=== PATIENT | female | born 1995 | race African-American/Black ===

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

== ENCOUNTER 2017-12-14 07:50 | Emergency (ER) | payer MEDICAID ==
[~2017-12-14] VITALS: Ht 167.6 cm; Wt 52.2 kg
[2017-12-14] MEDS ORDERED: NKM (08:04)
[2017-12-14] MEDS ORDERED: Ketorolac 30mg Inj IV ONE (08:15)
[2017-12-14 08:21] VITALS: BP 117/75
--- NOTE | 2017-12-14 08:26 | Emergency Room Report ---
History of Present Illness General Chief Complaint: Nausea, Vomiting, and Diarrhea Source: Patient, Family Member Present Illness HPI Patient presents with abdominal pain and vomiting. She is constipated. This is a recurrent problem with her. The last time she moved her bowels well was 4 days ago. She did pass some diarrhea earlier this morning. She also passed out with vomiting today. She's had syncope in the past in similar circumstances. She tried some Vivien-Cowiche this morning but was unable to keep it down. She complains about abdominal pain which is bilateral and below her bellybutton. It's constant and 7/10 and aching pressure. She denies any dysuria. Her last period was normal for her. She doesn't believe she is . There is no dysuria. She denies any fevers or chills. In the past she's taken magnesium citrate and this is helped out. It's been a long time she she's had a take magnesium citrate. She feels dehydrated at this time. She denies any recent travel or ill contacts. No headache, URI sy, chest pain, extremity pain. Student stress. She was evaluated here in 2014. She had a similar presentation at that time and EKG, cardiac monitoring and CT scan were performed. It was felt that syncope was vasovagal at that time. The CT scan had these results: Findings: Paucity of intra-abdominal fat limits visibility the bowel structures. A normal appendix is demonstrated. No evidence of diverticulosis or diverticulitis. There is some pelvic free fluid. The uterus is retroverted and retroflexed. No bowel distention. No free or loculated intraperitoneal air. Liver, gallbladder , spleen, adrenals, kidneys, pancreas are unremarkable. No pelvic mass or adenopathy. The lung bases are clear. The bones are unremarkable. Impression: Essentially unremarkable exam. 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[employer] Last Menstrual Period: 11/21/17 Reviewed Nursing Documentation: PMH: Agreed; PSxH: Agreed Nursing Documentation-PMH Past Medical History: No History, Except For Hx Gastrointestinal Problems: Yes Review of Systems All Other Systems: negative except mentioned in HPI Physical Exam Vital Signs Date Time Temp Pulse Resp B/P (MAP) Pulse Ox O2 Delivery O2 Flow Rate FiO2 12/14/17 07:55 97.8 72 18 117/75 99 Room Air 97.9 Sp02 EP Interpretation: reviewed, normal General Appearance: well appearing, no apparent distress, GCS 15, thin Head: normocephalic, atraumatic Eyes: bilateral eye normal inspection, bilateral eye PERRL, bilateral eye EOMI ENT: moist mucus membranes Neck: supple Respiratory: lungs clear, normal breath sounds Cardiovascular #1: regular rate, rhythm Cardiovascular #2: 2+ radial (R) Gastrointestinal: normal inspection, normal bowel sounds, no mass, non- distended, no guarding, no rebound, tenderness - Below bellybutton bilater, other - vomit with bile, no blood Genitourinary: no CVA tenderness Musculoskeletal: back normal, gait/station normal, normal range of motion Neurologic: alert, oriented x3, motor strength/tone normal, sensory intact, speech normal Psychiatric: mood/affect normal Skin: normal inspection, warm/dry Medical Decision Making Diagnostic Impression: Primary Impression: Abdominal pain Qualified Codes: R10.84 - Generalized abdominal pain Additional Impressions: Constipation Qualified Codes: K59.01 - Slow transit constipation Syncope Qualified Codes: R55 - Syncope and collapse ER Course Patient presents with abdominal pain, constipation, vomiting and syncopal episode after vomiting this morning. She's had these episodes in the past. At this point her vital signs are stable. She does have abdominal pain. Differential includes constipation, dehydration, viral syndrome, food poisoning amongst others. Evaluation will be with labs and also abdominal film. The patient will be treated with IV hydration, Zofran and when she is able to tolerate oral medication she magnesium citrate or lactulose. She may need to have an enema. The syncopal episode sounds vasovagal and this has happened in the past and at this time further evaluation is not necessary aside from laboratory. Labs with normal white count. Urinalysis negative. KUB nonspecific bowel gas pattern. Patient was able to tolerate lactulose and then had good results. There was slight amount of blood in the stool. Pain improved after moving her bowels. Patient is stable for outpatient observation and treatment. Laboratory Tests Test 12/14/17 08:14 8/19/18 09:00 White Blood Count 9.7 K/UL (4.8-10.8) Red Blood Count 4.03 M/UL (4.20-5.40) L Hemoglobin 12.5 G/DL (12.0-16.0) Hematocrit 37.5 % (37.0-47.0) Mean Corpuscular Volume 93 FL (80-99) Mean Corpuscular Hemoglobin 31.0 PG (27.0-31.0) Mean Corpuscular Hemoglobin Concent 33.3 G/DL (32.0-36.0) Red Cell Distribution Width 12.4 % (11.6-14.8) Platelet Count 149 K/UL (150-450) L Mean Platelet Volume 9.1 FL (6.5-10.1) Neutrophils (%) (Auto) 72.2 % (45.0-75.0) Lymphocytes (%) (Auto) 17.2 % (20.0-45.0) L Monocytes (%) (Auto) 8.0 % (1.0-10.0) Eosinophils (%) (Auto) 1.3 % (0.0-3.0) Basophils (%) (Auto) 1.3 % (0.0-2.0) Sodium Level 141 MMOL/L (136-145) Potassium Level 3.8 MMOL/L (3.5-5.1) Chloride Level 107 MMOL/L (98-107) Carbon Dioxide Level 23 MMOL/L (21-32) Anion Gap 11 mmol/L (5-15) Blood Urea Nitrogen 15 mg/dL (7-18) Creatinine 0.9 MG/DL (0.55-1.30) Estimate Glomerular Filtration Rate > 60 mL/min (>60) Glucose Level 124 MG/DL (74-106) H Calcium Level 8.7 MG/DL (8.5-10.1) Total Bilirubin 0.2 MG/DL (0.2-1.0) Aspartate Amino Transferase (AST) 24 U/L (15-37) Alanine Aminotransferase (ALT) 12 U/L (12-78) Alkaline Phosphatase 92 U/L (46-116) Total Protein 7.3 G/DL (6.4-8.2) Albumin 3.9 G/DL (3.4-5.0) Globulin 3.4 g/dL Albumin/Globulin Ratio 1.1 (1.0-2.7) Lipase 166 U/L (73-393) Urine Color Yellow Urine Appearance Clear Urine pH 5 (4.5-8.0) Urine Specific [place] 1.025 (1.005-1.035) Urine Protein 2+ (NEGATIVE) H Urine Glucose (UA) Negative (NEGATIVE) Urine Ketones 1+ (NEGATIVE) H Urine Occult Blood 1+ (NEGATIVE) H Urine Nitrite Negative (NEGATIVE) Urine Bilirubin Negative (NEGATIVE) Urine Urobilinogen 4 MG/DL (0.0-1.0) H Urine Leukocyte Esterase 1+ (NEGATIVE) H Urine RBC 2-4 /HPF (0 - 2) H Urine WBC 2-4 /HPF (0 - 2) Urine Squamous Epithelial Cells Few /LPF (NONE/OCC) Urine Bacteria Few /HPF (NONE) Urine Mucus Moderate /LPF (NONE/OCC) H Urine HCG, Qualitative Negative (NEGATIVE) Other X-Ray Diagnostic Results Other X-Ray Diagnostic Results : X-Ray ordered: abd # of Views/Limited Vs Complete: 1 View Indication: Pain Interpretation: nonspecific bowel gas, no sbo, other - no masses Impression: Other Electronically Signed by: Electronically signed by Seth Mayorga MD Last Vital Signs Date Time Temp Pulse Resp B/P (MAP) Pulse Ox O2 Delivery O2 Flow Rate FiO2 12/14/17 12:38 98.4 81 20 112/69 100 Room Air 98.4 Status: improved Disposition: HOME, SELF-CARE Condition: Improved Scripts Ondansetron Odt* (ZOFRAN ODT*) 4 Mg Tab.rapdis 4 MG BC EVERY 8 HOURS, #6 TAB 0 Refills Prov: Seth Mayorga M.D. 12/14/17 Lactulose (LACTULOSE*) 20 Gm/30 Ml Solution 30 ML ORAL BID, #240 ML 1 Refill Prov: Seth Mayorga M.D. 12/14/17 Seth Mayorga M.D. Dec 14, 2017 08:26
[2017-12-14 08:30] LABS: BASOPHILS % (AUTO) 1.3 % (0.0-2.0); EOSINOPHILS % (AUTO) 1.3 % (0.0-3.0); HEMATOCRIT 37.5 % (37.0-47.0); HEMOGLOBIN 12.5 G/DL (12.0-16.0); LYMPHOCYTES % (AUTO) 17.2 % (20.0-45.0); MEAN CORPUSCULAR VOLUME 93 FL (80-99); NEUTROPHILS % (AUTO) 72.2 % (45.0-75.0); PLATELET COUNT 149 K/UL (150-450); RED BLOOD COUNT 4.03 M/UL (4.20-5.40); RED CELL DISTRIBUTION WIDTH 12.4 % (11.6-14.8); WHITE BLOOD COUNT 9.7 K/UL (4.8-10.8)
[2017-12-14 09:09] LABS: ANION GAP 11 mmol/L (5-15); BLOOD UREA NITROGEN 15 mg/dL (7-18); CALCIUM 8.7 MG/DL (8.5-10.1); CARBON DIOXIDE 23 MMOL/L (21-32); CHLORIDE 107 MMOL/L (98-107); CREATININE 0.9 MG/DL (0.55-1.30); POTASSIUM 3.8 MMOL/L (3.5-5.1); SODIUM 141 MMOL/L (136-145)
[2017-12-14 09:13] LABS: ALANINE AMINOTRANSFERASE 12 U/L (12-78); ALBUMIN 3.9 G/DL (3.4-5.0); ALBUMIN/GLOBULIN RATIO 1.1 (1.0-2.7); ALKALINE PHOSPHATASE 92 U/L (46-116); ASPARTATE AMINO TRANSFERASE 24 U/L (15-37); BILIRUBIN,TOTAL 0.2 MG/DL (0.2-1.0)
[2017-12-14] MEDS ORDERED: Lactulose 20gm/30ml UDC ORAL ONE (09:15)
[2017-12-14 09:39] LABS: APPEARANCE,URINE CLEAR; BILIRUBIN, URINE NEGATIVE (NEGATIVE); GLUCOSE, URINE (UA) NEGATIVE (NEGATIVE); KETONES,URINE 1+ (NEGATIVE); LEUKOCYTE ESTERASE ,URINE 1+ (NEGATIVE); NITRITE,URINE NEGATIVE (NEGATIVE); PH,URINE 5 (4.5-8.0); PROTEIN,URINE 2+ (NEGATIVE); UROBILINOGEN,URINE 4 MG/DL (0.0-1.0)
[2017-12-14 09:58] LABS: COLOR,URINE YELLOW
--- NOTE | 2017-12-14 10:59 | Diagnostic Imaging Report ---
INDICATION: Abdominal pain COMPARISON: Radiograph dated 07/04/15 FINDINGS: Single frontal view of the abdomen demonstrates a normal bowel gas pattern. No evidence of organomegaly, abnormal calcifications or obvious soft tissue masses. The osseous structures are intact. IMPRESSION: Normal film of the abdomen.
[2017-12-14 11:28] VITALS: BP 112/69
[2017-12-14] MEDS ORDERED: ONDANSETRON ODT4 MG BC (12:27)
[2017-12-14] MEDS ORDERED: LACTULOSE20 GM/301 ORAL (12:27)
[2017-12-14 12:38] VITALS: BP 112/69
== END 2017-12-14 12:41 | disposition home or self-care (01) ==
LOC: EMR 08:18
DX: R10.9 Unspecified abdominal pain (principal); K59.00 Constipation, unspecified
CPT/HCPCS: 36415; 74018; 80053; 81003; 81025; 83690; 85025; 96361; 96374; 96375; 99285; J1885; J2405

== ENCOUNTER 2019-06-12 21:51 | Emergency (ER) | payer MEDICAID ==
[~2019-06-12] VITALS: Ht 165.1 cm; Wt 52.2 kg
[~2019-06-12 21:51] MED LIST changes: +ONDANSETRON ODT4 MG BC
[2019-06-12 22:12] VITALS: BP 126/71
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
[2019-06-12] MEDS ORDERED: Acetaminophen 500mg (ES) tab ORAL ONE (22:30)
[2019-06-12] MEDS ORDERED: Omnipaque-300 100ml vial INJ PRN (22:30)
--- NOTE | 2019-06-12 22:30 | NUR ---
ED Nurse Note: ERMD at bedside
--- NOTE | 2019-06-12 22:31 | NUR ---
ED Nurse Note: all medications administered, pt tolerated well. no adverse reactions noted.
[2019-06-12 22:34] LABS: APPEARANCE,URINE CLEAR; BILIRUBIN, URINE NEGATIVE (NEGATIVE); COLOR,URINE PALE YELLOW; GLUCOSE, URINE (UA) NEGATIVE (NEGATIVE); KETONES,URINE NEGATIVE (NEGATIVE); LEUKOCYTE ESTERASE ,URINE 2+ (NEGATIVE); NITRITE,URINE NEGATIVE (NEGATIVE); PH,URINE 7 (4.5-8.0); PROTEIN,URINE NEGATIVE (NEGATIVE); UROBILINOGEN,URINE NORMAL MG/DL (0.0-1.0)
--- NOTE | 2019-06-12 22:35 | NUR ---
ED Nurse Note: all blood work drawn and sent to lab
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
[2019-06-12 22:47] LABS: BASOPHILS % (AUTO) 1.8 % (0.0-2.0); EOSINOPHILS % (AUTO) 2.9 % (0.0-3.0); HEMATOCRIT 46.4 % (37.0-47.0); HEMOGLOBIN 14.4 G/DL (12.0-16.0); LYMPHOCYTES % (AUTO) 21.5 % (20.0-45.0); MEAN CORPUSCULAR VOLUME 96 FL (80-99); MONOCYTES % (AUTO) 8.7 % (1.0-10.0); NEUTROPHILS % (AUTO) 65.1 % (45.0-75.0); PLATELET COUNT 213 K/UL (150-450); RED BLOOD COUNT 4.82 M/UL (4.20-5.40); WHITE BLOOD COUNT 9.4 K/UL (4.8-10.8)
[2019-06-12 22:56] LABS: ANION GAP 8 mmol/L (5-15); BLOOD UREA NITROGEN 16 mg/dL (7-18); CALCIUM 9.5 MG/DL (8.5-10.1); CARBON DIOXIDE 27 MMOL/L (21-32); CHLORIDE 105 MMOL/L (98-107); CREATININE 0.9 MG/DL (0.55-1.30); POTASSIUM 3.9 MMOL/L (3.5-5.1); SODIUM 140 MMOL/L (136-145)
[2019-06-12 23:00] LABS: ALANINE AMINOTRANSFERASE 14 U/L (12-78); ALBUMIN 4.4 G/DL (3.4-5.0); ALBUMIN/GLOBULIN RATIO 1.1 (1.0-2.7); ALKALINE PHOSPHATASE 87 U/L (46-116); ASPARTATE AMINO TRANSFERASE 23 U/L (15-37); BILIRUBIN,TOTAL 0.2 MG/DL (0.2-1.0)
--- NOTE | 2019-06-13 00:15 | NUR ---
ED Nurse Note: Pt taken to CT in stable condition. VSS, aao x4, no s/s of distress noted
--- NOTE | 2019-06-13 00:35 | NUR ---
ED Nurse Note: pt returned from CT, VSS aao x 4 no s/s of distress noted
--- NOTE | 2019-06-13 00:38 | Diagnostic Imaging Report ---
EXAM: XR Chest, 1 View CLINICAL HISTORY: PAIN TECHNIQUE: Frontal view of the chest. COMPARISON: 03/02/15 FINDINGS: The cardiac and mediastinal silhouettes are unremarkable. Negative for parenchymal consolidation, pneumothorax or pleural fluid collections.
[2019-06-13 00:42] VITALS: BP 122/72
--- NOTE | 2019-06-13 00:48 | Diagnostic Imaging Report ---
EXAM: CT Abdomen and Pelvis With Intravenous Contrast CLINICAL HISTORY: ABD PAIN TECHNIQUE: Axial computed tomography images of the abdomen and pelvis with intravenous contrast. CTDI is 4 mGy and DLP is 172 mGy-cm. One or more of the following dose reduction techniques were used: automated exposure control, adjustment of the mA and/or kV according to patient size, use of iterative reconstruction technique. COMPARISON: 05/29/14 FINDINGS: Artifacts: Motion degraded study. Lung bases: Unremarkable. No mass. No consolidation. ABDOMEN: Liver: Tiny low attenuation focus lateral and posterior right hepatic lobe that is too small to accurately characterize. Gallbladder and bile ducts: Unremarkable. No calcified stones. No ductal dilation. Pancreas: Unremarkable. No mass. No ductal dilation. Spleen: Unremarkable. No splenomegaly. Adrenals: Unremarkable. No mass. Kidneys and ureters: Unremarkable. No solid mass. No hydronephrosis. Stomach and bowel: Unremarkable. No obstruction. No mucosal thickening. PELVIS: Appendix: The appendix was not visualized. Bladder: Mild bladder wall thickening with reticulation is indeterminate for cystitis. Reproductive: Nonspecific heterogeneous enlargement of the cervix with diffuse haziness and stranding in the pelvis. Cervicitis/PID not excluded. ABDOMEN and PELVIS: Intraperitoneal space: A paucity of intraperitoneal fat makes evaluation in the abdomen and pelvis difficult. No free air. No significant fluid collection. Bones/joints: No acute fracture. No dislocation. Soft tissues: See above. Vasculature: Unremarkable. No abdominal aortic aneurysm. Lymph nodes: Unremarkable. No enlarged lymph nodes. IMPRESSION: Findings indeterminate for cystitis and cervicitis.
[2019-06-13] MEDS ORDERED: Lidocaine 1% MPF 10mg/ml 5ml INJ ONE (01:15)
[2019-06-13] MEDS ORDERED: DOXYCYCLINE MO100 MG ORAL (01:20)
[2019-06-13] MEDS ORDERED: METRONIDAZOLE500 MG ORAL (01:20)
[2019-06-13 01:44] VITALS: BP_SYST 122; BP_DIAS 70; BP_DIAS 72
--- NOTE | 2019-06-13 01:44 | NUR ---
ER DISCHARGE NOTE: Patient is cleared to be discharged home per ERMD, pt is aox4, on room air, with stable vital signs. pt was given dc and prescription instructions, pt was able to verbalize understanding, pt id band and iv site removed without complications. pt is able to ambulate with steady gait. pt took all belongings.
== END 2019-06-13 01:44 | disposition home or self-care (01) ==
LOC: EMR 22:48
DX: R10.2 Pelvic and perineal pain (principal); R07.81 Pleurodynia; X58.XXXA Exposure to other specified factors, initial encounter; Y92.9 Unspecified place or not applicable
CPT/HCPCS: 36415; 71045; 74177; 80053; 81003; 81025; 83690; 85025; 96372; J0696; J7040; Q9967; Z7502; 99284